=== PATIENT | female | born 2000 | race Hispanic/Latino ===

== ENCOUNTER 2022-07-17 20:47 | Emergency (ER) | payer OTHER, BC ==
--- OUTSIDE RECORDS SUMMARY | 2022-07-17 20:50 | XMS REPORT | Continuity of Care Document ---
:2000 Author Organization [facility] Address [address] [place] [address] Care Team Providers Name Role Phone Nuha Garzon PA-C Primary Care Physician [phone] Demi Patrick Attending Clinician DEMI SHORT Attending Clinician Unavailable Lab, Lkj Pedi Attending Clinician Unavailable Nuha Garzon PA-C Attending Clinician NUHA GARZON Attending Clinician Unavailable Doctor Unassigned, [place] Attending Clinician Unavailable Payers Payer Name Policy Type Policy Number Effective Date Expiration Date S ource Problems Condition Condition Condition Status Onset Resolution Last Treating Co mments Source Name Details Category Date Date Treatment Clinician Date Need for Need for Disease Active Zabrina rs vaccinatio vaccinatio 3 it y of n n 00:00: [place] [facility] UTI UTI Disease Active Univers symptoms symptoms 3 ity of 00:00: [address] Post-strep Post-strep Disease Active U nivers tococcal tococcal 3 ity of glomerul[place] e[place] ephritis 00 Medica l Branch Hematuria Hematuria Disease Active Uni vers 3 ity of 00:00: [address] Proteinuri Proteinuri Disease Active U nivers a a 10-14 ity of 00:00: [address] Elevated Elevated Disease Active Unive rs blood blood 10-14 ity of pressure pressure 00:00: [place] [facility] Acute Acute Disease Active Overview: [facility] renal renal 10-14 Formattin ity of failure failure 00:00: g of this note Medical might be Branch different from the original. 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 Allergies, Adverse Reactions, Alerts Allergy Allergy Status Severity Reaction(s) Onset Inactive Treating Comm ents Source Name Type Date Date Clinician NO KNOWN Drug Active Univers ALLERGIE Class ity of S [facility] Social History Social Habit Start Date Stop Date Quantity Comments Source Exposure to Not sure [facility] SARS-CoV-2 (event) Medica l Branch Tobacco use and 2015-10-09 2015-10-09 Never used [facility] exposure 00:00:00 00:00:00 [facility] Branch Sex Assigned At 2000 2001 [facility] 00:00:00 00:00:00 [facility] Branch Smoking Status Start Date Stop Date Source Never smoker [facility] Medications Ordered Filled Start Stop Current Ordering Indication Dosage Frequency Signature Comments Components Source Medication Medication Date Date Medication? Clinician (SIG) Name Name amoxicillin 2021- No [id number] 1{tbl} Take 1 Univers -clavulanat 3-28 04-05 tablet by it y of e 00:00: 04:59 mouth 2 [place] (AUGMENTIN) 00 :00 (two) Medical 875-125 mg times Branch per tablet daily for 7 days. amoxicillin 2021- No [id number] 1{tbl} Take 1 Univers -clavulanat 3-28 04-05 tablet by it y of e 00:00: 04:59 mouth 2 [place] (AUGMENTIN) 00 :00 (two) Medical 875-125 mg times Branch per tablet daily for 7 days. No known No Univers medications 3-25 ity of 10:13: [address] No known No Univers medications 3-25 ity of 10:13: [address] Immunizations Ordered Immunization Filled Immunization Date Status Commen ts Source Name Name Influenza Virus 2021-11-07 Completed Universit y of Vaccine Quad IM, 00:00:00 [place] Me dical Preserv and ABX Free Bran ch 6 MO-64 YRS Influenza Virus 2021-11-07 Completed Universit y of Vaccine [facility], 00:00:00 [place] Me dical Preserv and ABX Free Bran ch 6 MO-64 YRS Influenza Virus 2021-11-07 Completed Universit y of Vaccine [facility], 00:00:00 [place] Me dical Preserv and ABX Free Bran ch 6 MO-64 YRS Influenza Virus 2021-11-07 Completed Universit y of Vaccine [facility] IM, 00:00:00 [place] Me dical Preserv and ABX Free Bran ch 6 MO-64 YRS Meningococcal 2020-03-28 Completed University of Polysaccharide 00:00:00 [place] Medi shelia (groups A, C, Y and Branc h W-135) conjugate vaccine (MCV4P) Meningococcal B, OMV 2020-03-28 Completed Univ ersity of 00:00:00 [facility] Meningococcal 2020-03-28 Completed University of Polysaccharide 00:00:00 [place] Medi shelia (groups A, C, Y and Branc h W-135) conjugate vaccine (MCV4P) Meningococcal B, OMV 2020-03-28 Completed Univ ersity of 00:00:00 [facility] Meningococcal 2020-03-28 Completed University of Polysaccharide 00:00:00 [place] Medi shelia (groups A, C, Y and Branc h W-135) conjugate vaccine (MCV4P) Meningococcal B, OMV 2020-03-28 Completed Univ ersity of 00:00:00 [facility] Meningococcal 2020-03-28 Completed University of Polysaccharide 00:00:00 [facility] shelia (groups A, C, Y and Branc h W-135) conjugate vaccine (MCV4P) Meningococcal B, OMV 2020-03-28 Completed Univ ersity of 00:00:00 [facility] HPV 2013-08-03 Completed University of 00:00:00 [facility] HPV 2013-08-03 Completed University of 00:00:00 [facility] Branch HPV 2013-08-03 Completed University of 00:00:00 [facility] HPV 2013-08-03 Completed University of 00:00:00 [facility] HPV 2013-03-20 Completed University of 00:00:00 [facility] HPV 2013-03-20 Completed University of 00:00:00 [facility] HPV 2013-03-20 Completed University of 00:00:00 [facility] HPV 2013-03-20 Completed University of 00:00:00 [facility] HPV 2013-01-30 Completed University of 00:00:00 [facility] Meningococcal Vaccine 2013-01-30 Completed Uni versity of 00:00:00 [facility] TDAP 2013-01-30 Completed University of 00:00:00 [facility] HPV 2013-01-30 Completed University of 00:00:00 [facility] Meningococcal Vaccine 2013-01-30 Completed Uni versity of 00:00:00 [facility] TDAP 2013-01-30 Completed University of 00:00:00 [facility] HPV 2013-01-30 Completed University of 00:00:00 [facility] Meningococcal Vaccine 2013-01-30 Completed Uni versity of 00:00:00 [facility] TDAP 2013-01-30 Completed University of 00:00:00 [facility] HPV 2013-01-30 Completed University of 00:00:00 [facility] Meningococcal Vaccine 2013-01-30 Completed Uni versity of 00:00:00 [facility] TDAP 2013-01-30 Completed University of 00:00:00 [facility] HEPATITIS A 2008-11-26 Completed University of 00:00:00 [facility] HEPATITIS A 2008-11-26 Completed University of 00:00:00 [facility] HEPATITIS A 2008-11-26 Completed University of 00:00:00 [facility] HEPATITIS A 2008-11-26 Completed University of 00:00:00 [facility] Varicella 2008-07-11 Completed University of (varivax)(chicken 00:00:00 [place] M edical pox) Branch Varicella 2008-07-11 Completed University of (varivax)(chicken 00:00:00 [place] M edical pox) Branch Varicella 2008-07-11 Completed University of (varivax)(chicken 00:00:00 [place] M [facility]ical pox) Branch Varicella 2008-07-11 Completed University of (varivax)(chicken 00:00:00 [place] M edical pox) Branch HEPATITIS A 2008-05-28 Completed University of 00:00:00 [facility] HEPATITIS A 2008-05-28 Completed University of 00:00:00 [facility] HEPATITIS A 2008-05-28 Completed University of 00:00:00 [facility] HEPATITIS A 2008-05-28 Completed University of 00:00:00 [facility] MMR 2005-07-28 Completed University of 00:00:00 [facility] MMR 2005-07-28 Completed University of 00:00:00 [facility] MMR 2005-07-28 Completed University of 00:00:00 [facility] MMR 2005-07-28 Completed University of 00:00:00 [facility] DTAP 2005-07-21 Completed University of 00:00:00 [facility] Polio (IPV/OPV) 2005-07-21 Completed Universit y of 00:00:00 [facility] DTAP 2005-07-21 Completed University of 00:00:00 [facility] Polio (IPV/OPV) 2005-07-21 Completed Universit y of 00:00:00 [facility] DTAP 2005-07-21 Completed University of 00:00:00 [facility] Polio (IPV/OPV) 2005-07-21 Com[facility] 00:[facility]00 [facility] Polio (IPV/OPV) 2005-07-21 Completed [facility] University of 00:00:00 [facility] Varicella 2002-12-05 Completed University of (varivax)(chicken 00:00:00 [place] M edical pox) Branch DTAP 2002-12-05 Completed University of 00:00:00 [facility] Varicella 2002-12-05 Completed University of (varivax)(chicken 00:00:00 [place] M edical pox) Branch DTAP 2002-12-05 Completed University of 00:00:00 [facility] Varicella 2002-12-05 Completed University of (varivax)(chicken 00:00:00 [place] M [place] pox) Branch DTAP 2002-12-05 Completed University of 00:00:00 [facility] Varicella 2002-12-05 Completed University of (varivax)(chicken 00:00:00 [place] M [facility] pox) Branch HIB 3 Dose Schedule 2002-11-20 Completed Unive rsity of 00:00:00 [facility] HIB 3 Dose Schedule 2002-11-20 Completed Unive rsity of 00:00:00 [facility] HIB 3 Dose Schedule 2002-11-20 Completed Unive rsity of 00:00:00 [facility] HIB 3 Dose Schedule 2002-11-20 Completed Unive rsity of 00:00:00 [facility] MMR 2002-08-22 Completed University of 00:00:00 [facility] MMR 2002-08-22 Completed University of 00:00:00 [facility] MMR 2002-08-22 Completed University of 00:00:00 [facility] MMR 2002-08-22 Completed University of 00:00:00 [facility] DTAP 2002-03-02 Completed University of 00:00:00 [facility] DTAP 2002-03-02 Completed University of 00:00:00 [facility] DTAP 2002-03-02 Completed University of 00:00:00 [facility] DTAP 2002-03-02 Completed University of 00:00:00 [facility] Hep B, Adol or Pedi 2002-01-17 Completed Unive rsity of Dosage 00:00:00 [facility] Pneumococcal 13 2002-01-17 Completed Universit y of Conjugate, PCV13 00:00:00 [facility] dical (Prevnar 13) Branch Polio (IPV/OPV) 2002-01-17 Completed Universit y of 00:00:00 [facility] Hep B, Adol or Pedi 2002-01-17 Completed Unive rsity of Dosage 00:00:00 [facility] Pneumococcal 13 2002-01-17 Completed Universit y of Conjugate, PCV13 00:00:00 [facility] [place] [facility] dical (Prevnar 13) Branch Polio (IPV/OPV) 2002-01-17 Completed Universit y of 00:00:00 [facility] Hep B, Adol or Pedi 2002-01-17 Completed Unive rsity of Dosage 00:00:00 [facility] Pneumococcal 13 2002-01-17 Completed Universit y of Conjugate, PCV13 00:00:00 [facility] dical (Prevnar 13) Branch Polio (IPV/OPV) 2002-01-17 Completed Universit y of 00:00:00 [facility] Hep B, Adol or Pedi 2002-01-17 Completed Unive rsity of Dosage 00:00:00 [facility] Pneumococcal 13 2002-01-17 Completed Universit y of Conjugate, PCV13 00:00:00 [facility] [place] [facility] dical (Prevnar 13) Branch Polio (IPV/OPV) 2002-01-17 Completed Universit y of 00:00:00 [facility] DTAP 2001 Completed University of 00:00:00 [facility] HIB 3 Dose Schedule 2001 Completed Unive rsity of 00:00:00 [facility] Hep B, Adol or Pedi 2001 Completed Unive rsity of Dosage 00:00:00 [facility] Pneumococcal 13 2001 Completed Universit y of Conjugate, PCV13 00:00:00 [facility] [place] [facility] dical (Prevnar 13) Branch Polio (IPV/OPV) 2001 Completed Universit y of 00:00:00 [facility] DTAP 2001 Completed University of 00:00:00 [facility] HIB 3 Dose Schedule 2001 Completed Unive rsity of 00:00:00 [facility] Hep B, Adol or Pedi 2001 Completed Unive rsity of Dosage 00:00:00 [facility] Pneumococcal 13 2001 Completed Universit y of Conjugate, PCV13 00:00:00 [facility] (Prevnar 13) [place] Polio (IPV/OPV) 2001 Completed Universit y of 00:00:00 [facility] DTAP 2001 Completed University of 00:00:00 [facility] HIB 3 Dose Schedule 2001 Completed Unive rsity of 00:00:00 [facility] Hep B, Adol or Pedi 2001 Completed Unive rsity of Dosage 00:00:00 [facility] Pneumococcal 13 2001 Completed Universit y of Conjugate, PCV13 00:00:00 [facility] (Prevnar 13) Branch Polio (IPV/OPV) 2001 Completed Universit y of 00:00:00 [facility] DTAP 2001 Completed University of 00:00:00 [facility] HIB 3 Dose Schedule 2001 Completed Unive rsity of 00:00:00 [facility] Hep B, Adol or Pedi 2001 Completed Unive rsity of Dosage 00:00:00 [facility] Pneumococcal 13 2001 Completed Universit y of Conjugate, PCV13 00:00:00 [facility] [place] [facility] dical (Prevnar 13) Branch Polio (IPV/OPV) 2001 Completed Universit y of 00:00:00 [facility] DTAP 2001 Completed University of 00:00:00 [facility] HIB 3 Dose Schedule 2001 Completed Unive rsity of 00:00:00 [facility] Hep B, Adol or Pedi 2001 Completed Unive rsity of Dosage 00:00:00 [facility] Pneumococcal 13 2001 Completed Universit y of Conjugate, PCV13 00:00:00 [facility] dical (Prevnar 13) Branch Polio (IPV/OPV) 2001 Completed Universit y of 00:00:00 [facility] DTAP 2001 Completed University of 00:00:00 [facility] HIB 3 Dose Schedule 2001 Completed Unive rsity of 00:00:00 [facility] Hep B, Adol or Pedi 2001 Completed Unive rsity of Dosage 00:00:00 [facility] Pneumococcal 13 2001 Completed Universit y of Conjugate, PCV13 00:00:00 [facility] dicms (Prevnar 13) [place] Polio (IPV/OPV) 2001 Completed Universit y of 00:00:00 [facility] DTAP 2001 Completed University of 00:00:00 [facility] HIB 3 Dose Schedule 2001 Completed Unive rsity of 00:00:00 [facility] Hep B, Adol or Pedi 2001 Completed Unive rsity of Dosage 00:00:00 [facility] Pneumococcal 13 2001 Completed Universit y of Conjugate, PCV13 00:00:00 [facility] dical (Prevnar 13) [place] Polio (IPV/OPV) 2001 Completed Universit y of 00:00:00 [facility] DTAP 2001 Completed University of 00:00:00 [facility] HIB 3 Dose Schedule 2001 Completed Unive rsity of 00:00:00 [facility] Hep B, Adol or Pedi 2001 Completed Unive rsity of Dosage 00:00:00 [facility] Pneumococcal 13 2001 Completed Universit y of Conjugate, PCV13 00:00:00 [facility] dical (Prevnar 13) Branch Polio (IPV/OPV) 2001 Completed Universit y of 00:00:00 [facility] Vital Signs Vital Name Observation Time Observation Value Comments Source Systolic blood 2021-11-07 15:12:00 101 mm[Hg] Univer sity of pressure [facility] Diastolic blood 2021-11-07 15:12:00 63 [facility] 2021-11-07 15:12:00 83 /min [facility] Body temperature 2021-11-07 15:12:00 [facility].94 [facility] height 2021-11-07 15:12:00 154.9 cm [facility] Body weight 2021-11-07 15:12:00 81.557 kg [facility] BMI 2021-11-07 15:12:00 33.97 kg/m2 [facility] Procedures Procedure Date / Time Performed Performing Clinician Sourc e FLU VACC ([id number]), 2021-11-07 15:25:28 Demi Short [facility] 2-64 YRS, .5ML, IM, Medical Bran ch QUAD (FLUCELVAX) POCT URINALYSIS 2021-11-07 15:10:00 Demi Short [place] o f [facility] Encounters Start End Encounter Admission Attending Care Care Encounter Source Date/Time Date/Time Type Type Clinicians Facility Department ID 2021-11-10 2021-11-[address] [facility] [id number] [facility] 00:00:00 00:00:00 [facility] [id number] it y of [place] [id number] Serafin as JOHANA?BLEA [id number] [address] MEDICAL OFFICE [facility] 2021-11-10 2021-11-[address] [facility] [id number] Univers 00:00:00 00:00:00 DemiOn license of [facility] [id number] it y of [place] [id number] Serafin as JOHANA?BLEA [id number] [address] MEDICAL OFFICE [facility] 2021-11-07 2021-11-07 Outpatient R DEJA [facility] [id number] Univers 10:00:00 10:37:08 DEMI miranda [facility] 2021-11-07 2021-11-07 [facility] [id number] Univers 10:00:00 10:37:08 Visit Demi [place] [id number] it y of [place] [id number] Serafin as JOHANA?BLEA [id number] [place] aubrey POWELL [address] [place] MEDICAL OFFICE [facility] 2021-11-07 2021-11-07 [facility] [id number] Univers 10:00:00 10:37:08 DEMI miranda [facility] 2020-05-01 2020-05-01 Form [facility], Lkj [facility] [id number] Univers 07:50:42 08:09:35 Visit Nuha Garzon [id number] ity of Pediatric [id number] Te [facility] [id number] [address] 2020-05-01 2020-05-01 Outpatient R [facility] [id number] Univers 08:00:00 08:00:00 , NUHA miranda [facility] 2020-04-26 2020-04-26 Telephone [facility] [id number] Univers 00:00:00 00:00:00 , Nuha Husain [id number] it y of Pediatric [id number] Te [facility] [phone] [address] 2020-03-28 2020-03-28 Office [facility] [id number] Univers 10:04:41 10:57:15 Visit Nuha [id number] it y of Pediatric [id number] Te [facility] [id number] [address] 2020-03-28 2020-03-28 Outpatient R [facility] [id number] Univers 10:00:00 10:00:00 , NUHA miranda [facility] 2020-03-28 2020-03-28 Orders Doctor THOMSON [id number] Univers 00:00:00 00:00:00 Only Unassigned, ANGELA [id number] ity of [place] [facility] [id number] Serafin as [id number] [address] Results Test Description Test Time Test Comments Results Result Comments Source POCT URINALYSIS W SPECIFIC GRAVITY 2021-11-07 15:16:00 Test Item Value Reference Range Interpretation Comme nts POCT U SP GRAV (test code = 3255) 1.025 mg/dl 1.005-1.025 POCT PH U (test code = 3254) 5 mg/dl 5-8 POCT U LEUK EST (test code = 3263) neg Negative - Negative POCT U NIT (test code = 3262) neg Negative - Negative POCT U PROT (test code = 3259) neg Negative - Negative POCT U GLU (test code = 3256) neg Negative - Negative POCT U KETONE (test code = 3258) neg Negative - Negative POCT U UROBILI (test code = 3260) neg 0.2-1 POCT U BILI (test code = 3261) neg Negative - Negative POCT U BLD (test code = 3257) neg Negative - Negative POCT U COLOR (test code = 3266) pale yellow POCT U APPEAR (test code = 3267) clear Lab Interpretation (test code = 41168-7) Normal [facility] SPECIFIC [id number] 15:16:00 Test Item Value Reference Range Interpretation Comments POCT U SP GRAV (test code = 1.025 mg/dl 1.005-1.025 5) POCT PH U (test code = 3254) 5 mg/dl 5-8 POCT U LEUK EST (test code = neg Negative - Negative 3263) POCT U NIT (test code = 3262) neg Negative - Negative POCT U PROT (test code = neg Negative - Negative 3259) POCT U GLU (test code = 3256) neg Negative - Negative POCT U KETONE (test code = neg Negative - Negative 3258) POCT U UROBILI (test code = neg 0.2-1 3260) POCT U BILI (test code = neg Negative - Negative 3261) POCT U BLD (test code = 3257) neg Negative - Negative POCT U COLOR (test code = pale yellow 3266) POCT U APPEAR (test code = clear 3267) Lab Interpretation (test code Normal = 07843-6) [facility]
[2022-07-17] MEDS ORDERED: FLUORESCEIN SODIUM 1 MG/WRAP ONE (21:33)
[2022-07-17] MEDS ORDERED: TETRACAINE HCL 0.5% 4ML OPTH ONE (21:33)
--- NOTE | 2022-07-17 21:46 | EDPHYS ---
Physician Documentation [facility] Name: Bambi Seals Age: 22 yrs Sex: Female : 2000 Arrival Date: 07/17/2022 Time: 20:54 Bed IW5 Private MD: ED Physician Fady Gutierrez HPI: 07/17 22:01 This 22 yrs old Female presents to ER via Unassigned with complaints of ms3 Foreign Body In Eye. 22:01 The patient is experiencing foreign body sensation, The patient sustained wine glass ms3 shattered at work and she feels like glass is in her eye. Onset: The symptoms/episode began/occurred just prior to arrival. Duration: the symptoms are continuous. Aggravated by blinking, Alleviated by nothing. Associated signs and symptoms: Pertinent positives: None. Pertinent negatives: None. 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 - Social history:: Smoking status: Patient denies any tobacco usage or history of. ROS: 22:01 Constitutional: Negative for fever, and chills. Neck: Negative for injury, pain, and ms3 swelling, Cardiovascular: Negative for chest pain, and palpitations. 22:01 MS/Extremity: Negative for injury and deformity, Skin: Negative for injury, rash, and discoloration. 22:01 Eyes: Positive for foreign body sensation. 22:01 Eyes: Negative for acute changes, blurry vision, discharge, vision loss, visual disturbance. 22:01 All other systems are negative. Exam: 22:01 Constitutional: This is a well developed, well nourished patient who is awake, alert, ms3 and in no acute distress. Head/Face: Normocephalic, atraumatic. Neck: Trachea midline, no cervical lymphadenopathy. Supple, full range of motion without nuchal rigidity, or vertebral point tenderness. No Meningismus. Chest/axilla: Normal chest wall appearance and motion. Nontender with no deformity. Cardiovascular: Regular rate and rhythm with a normal S1 and S2. No gallops, murmurs, or rubs. Normal PMI, no JVD. No pulse deficits. Respiratory: Lungs have equal breath sounds bilaterally, clear to auscultation and percussion. No rales, rhonchi or wheezes noted. No increased work of breathing, no retractions or nasal flaring. Abdomen/GI: Soft, non-tender, with normal bowel sounds. No distension or tympany. No guarding or rebound. No evidence of tenderness throughout. 22:01 Skin: Warm, dry with normal turgor. Normal color with no rashes, no lesions, and no evidence of cellulitis. 22:01 Eyes: Periorbital structures: appear normal, Pupils: equal, round, and reactive to light and accomodation, Extraocular movements: no acute changes, Conjunctiva: no acute changes, Corneas: abrasion, that is small, on the right, at 7 o'clock. Vital Signs: 22:00 BP 125 / 76; Pulse 82; Resp 20; Temp 98; Pulse Ox 99% ; Weight 83.91 kg; Height 5 ft. 1 kb3 in. (154.94 cm); Pain 5/10; 22:00 Body Mass Index 34.96 (83.91 kg, 154.94 cm) kb3 MDM: 21:44 Patient medically screened. ms3 22:01 Differential diagnosis: Corneal abrasion of Foreign body in. Data reviewed: vital ms3 signs, nurses notes, and as a result, I will discharge patient. Counseling: I had a detailed discussion with the patient and/or guardian regarding: the historical points, exam findings, and any diagnostic results supporting the discharge/admit diagnosis, the need for outpatient follow up, to return to the emergency department if symptoms worsen or persist or if there are any questions or concerns that arise at home. ED course: Discussed exam findings with patient and her . They understand and agree with plan. According to her after. Patient follow-up with Dr. Saba in 2 to 3 days. Return precautions discussed include worsening symptoms, or any other concerns. Administered Medications: 22:04 Drug: Tetracaine Drops 0.5 % 1 drops Route: Ophthalmic; Site: right eye; kb3 22:14 Follow up: Response: No adverse reaction kb3 22:04 Drug: Fluorescein Strip 1 strip Route: Ophthalmic; Site: right eye; kb3 22:14 Follow up: Response: No adverse reaction kb3 Disposition Summary: 07/17/22 21:45 Discharge Ordered Location: Home ms3 Condition: Stable ms3 Diagnosis - Injury of conjunctiva and corneal abrasion without foreign body ms3 - Ocular pain, right eye ms3 Followup: ms3 - With: Jose Saba MD - When: 2 - 3 days - Reason: Recheck today's complaints Discharge Instructions: - Discharge Summary Sheet ms3 - Corneal Abrasion ms3 Forms: - Medication Reconciliation Form ms3 - Thank You Letter ms3 - Antibiotic Education ms3 - Prescription Opioid Use ms3 Prescriptions: - Erythromycin 5 mg/gram (0.5 %) Ophthalmic Ointment - apply 1 ribbon by OPHTHALMIC route every 8 hours; 1 tube; Refills: 0, Product ms3 Selection Permitted Signatures: Fady Gutierrez DO DO ms3 Sharifa Ardon, RN RN kb3
--- NOTE | 2022-07-17 22:16 | ER ---
Nurse's Notes [facility] Name: Babmi Seals Age: 22 yrs Sex: Female : 2000 Arrival Date: 07/17/2022 Time: 20:54 Bed IW5 Private MD: Diagnosis: Injury of conjunctiva and corneal abrasion without foreign body;Ocular pain, right eye Presentation: 07/17 22:00 Chief complaint: Patient states: a glass broke at work and possibly a piece of glass kb3 went into her right eye. Reports pain, foreign body sensation and redness. Coronavirus screen: Vaccine status: Patient reports receiving the 2nd dose of the covid vaccine. Client denies travel out of the [place] in the last 14 days. Ebola Screen: Patient negative for fever greater than or equal to 101.5 degrees Fahrenheit, and additional compatible Ebola Virus Disease symptoms Patient denies exposure to infectious person. Patient denies travel to an Ebola-affected area in the 21 days before illness onset. Initial Sepsis Screen: Does the patient meet any 2 criteria? No. Patient's initial sepsis screen is negative. Does the patient have a suspected source of infection? No. Patient's initial sepsis screen is negative. Risk Assessment: Do you want to hurt yourself or someone else? Patient reports no desire to harm self or others. Onset of symptoms was July 17, 2022 at 19:00. 22:00 Method Of Arrival: Ambulatory kb3 22:00 Acuity: BETO 4 kb3 Triage Assessment: 22:02 General: Appears in no apparent distress. Behavior is calm, cooperative. Pain: kb3 Complains of pain in right eye Pain does not radiate. Pain currently is 5 out of 10 on a pain scale. SIGNAL PERSON: 22:02 LMP 06/06/2022 kb3 Historical: - Allergies: 22:02 No Known Allergies; kb3 - Home Meds: 22:02 None [Active]; kb3 - PMHx: 22:02 None; kb3 - PSHx: 22:02 None; kb3 - Immunization history:: Adult Immunizations up to date, Client reports receiving the 2nd dose of the Covid vaccine, Last tetanus immunization: up to date. - Social history:: Smoking status: Patient denies any tobacco usage or history of. Screenin:03 Abuse screen: Denies threats or abuse. Denies injuries from another. Nutritional kb3 screening: No deficits noted. Tuberculosis screening: No symptoms or risk factors identified. Fall Risk None identified. Assessment: 22:03 Reassessment: Patient appears in no apparent distress at this time. General: see triage kb3 note. Vital Signs: 22:00 BP 125 / 76; Pulse 82; Resp 20; Temp 98; Pulse Ox 99% ; Weight 83.91 kg; Height 5 ft. 1 kb3 in. (154.94 cm); Pain 5/10; 22:00 Body Mass Index 34.96 (83.91 kg, 154.94 cm) kb3 ED Course: 20:54 Patient arrived in ED. dt4 21:20 Fady Gutierrez DO is Attending Physician. ms3 21:44 Jose Saba MD is Referral Physician. ms3 22:02 Triage completed. kb3 22:02 Arm band placed on right wrist. kb3 22:03 Patient has correct armband on for positive identification. kb3 22:03 No provider procedures requiring assistance completed. Patient did not have IV access kb3 during this emergency room visit. 22:14 Sharifa Ardon, RN is Primary Nurse. kb3 Administered Medications: 22:04 Drug: Tetracaine Drops 0.5 % 1 drops Route: Ophthalmic; Site: right eye; kb3 22:14 Follow up: Response: No adverse reaction kb3 22:04 Drug: Fluorescein Strip 1 strip Route: Ophthalmic; Site: right eye; kb3 22:14 Follow up: Response: No adverse reaction kb3 Medication: 22:03 VIS not applicable for this client. kb3 Outcome: 21:45 Discharge ordered by . ms3 22:15 Discharged to home ambulatory. kb3 22:15 Condition: stable 22:15 Discharge instructions given to patient, Instructed on discharge instructions, follow up and referral plans. medication usage, Demonstrated understanding of instructions, follow-up care, medications, Prescriptions given X 1. 22:15 Patient left the ED. kb3 Signatures: Fady Gutierrez DO DO ms3 Sharifa Ardon, RN RN kb3 Kerry Rogel dt4
[2022-07-17 22:28] VITALS: BP 125/76; TEMP 98; O2SAT 99
== END 2022-07-17 22:15 | disposition home or self-care (01) ==
LOC: ER 20:47
DX: S05.01XA Injury of conjunctiva and corneal abrasion without foreign body, right eye, initial encounter (principal)
CPT/HCPCS: 99283